=== PATIENT | male | born 1945 | race Hispanic/Latino ===

== ENCOUNTER → 2018-11-04 | Outpatient (CLI) | payer OTHER, MEDICARE ==
[~2018-11-04] MED LIST: AMLO10TA7 PO; ATOR40TA69 PO; GLIP10TA9 PO; HYDR25TA PO; LISI40TA4 PO; METF-446 PO; METO-409 PO
== END | disposition home or self-care (01) ==
LOC: RAH 09:48
PROVIDERS: ATTEND Family Medicine
DX: I12.9 Hypertensive chronic kidney disease with stage 1 through stage 4 chronic kidney disease, or unspecified chronic kidney disease (principal); N18.9 Chronic kidney disease, unspecified; I25.2 Old myocardial infarction; R79.89 Other specified abnormal findings of blood chemistry
CPT/HCPCS: 93306